=== PATIENT | female | born 1955 | race African-American/Black ===

== ENCOUNTER → 2017-12-12 10:09 | Outpatient (CLI) | payer OTHER ==
[2015-07-05 06:17] VITALS: BMI 36.9
[~2017-12-12 10:09] MED LIST: BAYER CHEWABLE81 MG PO; CADUET 10 MG/201 TAB; GARLIC1 CAP PO; HYDROCODONE-APA1 TAB PO; LOTREL 10/20 CA1 CAP PO; TOPROL XL25 MG; VITAMIN C1000 MG PO; VITAMIN D31000 UNIT PO
== END | disposition home or self-care (01) ==
LOC: D.CT 10:09
DX: R51 Headache (principal)

== ENCOUNTER → 2018-10-21 07:51 | Outpatient (CLI) | payer MEDICARE, OTHER ==
[2015-07-05 06:17] VITALS: BMI 36.9
[~2018-10-21 07:51] MED LIST changes: +ALDACTONE25 MG PO
== END | disposition home or self-care (01) ==
LOC: D.HCCARDIO 07:51
DX: R94.31 Abnormal electrocardiogram [ECG] [EKG] (principal)

== ENCOUNTER → 2018-10-29 06:01 | Outpatient (CLI) | payer MEDICARE, OTHER ==
[~2018-10-29] VITALS: Ht 160 cm; Wt 93.2 kg
--- NOTE | ~2018-10-29 | HEMODYNAMI ---
PATIENT:AMARI ROSE MEDICAL RECORD: [id number] : 51 LOCATION:[facility] ADMISSION DATE: 10/29/18 Generatedon:10/29/20188:05 Patient name: AMARI ROSE Patient #: [id number] SSN: DO B: 1955 Date of study: 10/29/2018 Page: Of Hemodynamic Procedure Report Patient Data Patient Demographics Procedure consent was obtained First Name: AMARI Gender: Female Last Name: MILTON : 1955 [facility] Initial: SPARKLE Age: 63 year(s) Patient #: [id number] Race: Black Additional ID: [id number] Contact details Address: [address] [place] [address] State: [place] City: [place] Zip code: [address] Past Medical History Allergies: No known allergies Admission Admission Data Admission Date: 10/29/2018 Admission Time: 6:01 Admit Source: Other Lab Results Lab Result Date: 10/29/2018 Lab Result Time: 0:00 Biochemistry Name Units Result Min Max BUN mg/dl 14 --(--*-)-- 7 18 Creatinine mg/dl 0.9 --(-*--)-- 0.6 1.3 CBC Name Units Result Min Max Hemoglobin g/dl 13.9 --(*---)-- 13.5 17.5 Procedure Procedure Types Cath Procedure Diagnostic Procedure LHC LHC w/Coronaries Sedation Charges Moderate Sedation up to 15 minutes Procedure Description Procedure Date Procedure Date: 10/29/2018 Procedure Start Time: 7:52 Procedure End Time: 8:04 Procedure Staff Name Function Diego Todd MD Performing Physician Mario Long RT Monitor Ashley High RT Scrub Denisa Mott RN Nurse Carl Birmingham RN Receiving Dock Checker Procedure Data Cath Procedure Fluoroscopy Diagnostic fluoroscopy Total fluoroscopy Time: 2.2 time: 2.2 min min Diagnostic fluoroscopy Total fluoroscopy dose: 541 dose: 541 mGy mGy Contrast Material Contrast Material Type Amount (ml) Isovue 300 40 Entry Location Entry Primary Successful Side Size Upsize Upsize Entry Closure Casas ccessful Closure Location (Fr) 1 (Fr) 2 (Fr) Remarks Device Remarks Radial Right 6 Fr Mechanical artery Short Compression Diagnostic catheters Device Type Used For End Catheter Placement DIAGNOSTIC 5FR Super Procedure Torque RBL-JK ([id number]) Procedure Complications No complications Procedure Medications Medication Administration Route Dosage 0.9% NaCl I.V. 100 ml/hr Oxygen etCO2 Nasal cannula 2 l/min Lidocaine 2% added to field 20 Heparin Flush Bag added to field 2 bags (1000units/500ml NS) Radial Cocktail added to field 1 syringe (Verapomil 2mg/Nitro 400mcg/Heparin 1500units) Versed I.V. 2 mg Fentanyl I.V. 50 mcg Versed I.V. 2 mg Fentanyl I.V. 50 mcg Hemodynamics Rest HGB: 13.9 (g/dl) Heart Rate: 67 (bpm) Pressure Samples Time Site Value (mmHg) Purpose Heart Use Rate(bpm) 7:56 LV 114/-8,3 Snapshot 89 Gradients Valve Time Site Site Mean SEP/DFP Peak To Heart Use 1 2 (mmHg) (sec/min) Peak Rate (mmHg) (bpm) Aortic 7:57 LV AO 77 Snapshots Pre Cath Intra NCS Post Cath Vital Signs Time Heart Resp SPO2 etCO2 NIBP (mmHg) Rhythm Pain Sedation Rate (ipm) (%) (mmHg) Status Level (bpm) 7:38:32 74 12 99 38.5 156/91(132) NSR 0 (11) 10(A) , No pain 7:42:58 66 12 98 40.8 140/73(101) NSR 0 (11) 10(A) , No pain 7:47:18 67 12 98 28.7 136/74(101) NSR 0 (11) 10(A) , No pain 7:51:30 70 11 98 40.8 121/73(102) NSR 0 (11) 10(A) , No pain 7:55:46 79 13 97 36.3 109/63(81) NSR 0 (11) 9(A) , No pain 8:00:00 75 10 98 37.7 114/69(94) NSR 0 (11) 10(A) , No pain 8:04:12 77 11 96 37 117/65(98) NSR 0 (11) 10(A) , No pain Medications Time Medication Route Dose Verified Delivered Reason Notes Ef fectiveness by by 7:39:31 0.9% NaCl I.V. 100 Diego Denisa used for ml/hr Perez Mott assistant therapy aide 7:39:47 Oxygen etCO2 2 l/min Diego Denisa used for Nasal Perez Mott procedure cannula RN 7:39:53 Lidocaine 2% added 20ml Diego Diego for local to vial Perez Todd MD anesthetic field 7:39:59 Heparin Flush added 2 bags Diego Diego used for Bag to Perez Todd MD procedure (1000units/500ml field NS) 7:40:09 Radial Cocktail added 1 Diego Diego used for (Verapomil to syringe Perez Todd MD procedure 2mg/Nitro field 400mcg/Heparin 1500units) 7:47:23 Versed I.V. 2 mg Diego Denisa for Perez Mott sedation RN 7:47:35 Fentanyl I.V. 50 mcg Diego Denisa for Perez Mott sedation RN 7:53:42 Versed I.V. 2 mg Diego Denisa for Perez Mott sedation RN 7:53:47 Fentanyl I.V. 50 mcg Diego Denisa for Perez Mott sedation mining manager Log Time Note 7:24:46 Informed consent obtained and on chart 7:24:49 Admit Source: Other 7:25:11 Diagnostic Cath status Elective 7:25:13 Carl Birmingham RN sent for patient. Start room use. 7:25:14 Time tracking: Regular hours (M-F 7:00 - 5:00) 7:25:17 Plan of Care:Hemodynamics will remain stable., Cardiac rhythm will remain stable., Comfort level will be maintained., Respiratory function will remain adequate., Patient/ family verbilizes understanding of procedure., Procedure tolerated without complication., Recovers from procedure without complications.. 7:28:11 H&P Date Dictated: 10/07/2018 Within 30 days and on chart., H&P Addendum completed by physician on day of procedure. (MUST COMPLETE FOR ALL OUTPATIENTS). 7:28:21 Patient allergic to No known allergies 7:28:40 Lab Result : BUN 14 mg/dl 7:28:40 Lab Result : Creatinine 0.9 mg/dl 7:28:40 Lab Result : Hemoglobin 13.9 g/dl 7:30:13 Patient received from Pre/Post Procedure Room to CCL 1 Alert and oriented. Tansferred to table in Supine position. 7:30:15 Warm blankets applied, and qasim hugger turned on for patient comfort. 7:30:15 Correct patient and procedure confirmed by team. 7:30:16 ECG and BP/O2 sat monitors applied to patient. 7:36:09 Vital chart was started 7:39:31 0.9% NaCl 100 ml/hr I.V. was administered by Denisa Mott RN; used for procedure; 7:39:47 Oxygen 2 l/min etCO2 Nasal cannula was administered by Denisa Mott RN; used for procedure; 7:39:53 Lidocaine 2% 20ml vial added to field was administered by Diego Todd MD; for local anesthetic; 7:39:59 Heparin Flush Bag (1000units/500ml NS) 2 bags added to field was administered by Diego Todd MD; used for procedure; 7:40:09 Radial Cocktail (Verapomil 2mg/Nitro 400mcg/Heparin 1500units) 1 syringe added to field was administered by Diego Todd MD; used for procedure; 7:44:11 Baseline sample Acquired. 7:44:17 Rhythm: sinus rhythm 7:44:20 Full Disclosure recording started 7:44:21 Pre-procedure instructions explained to patient. 7:44:22 Pre-op teaching completed and patient verbalized understanding. 7:44:23 Family in waiting room. 7:44:27 Patient NPO since Midnight. 7:44:36 Is the patient allergic to Iodine/contrast media? No. 7:44:37 Was the patient premedicated? No 7:44:39 Is patient on blood thinner?No 7:44:40 Patient diabetic? No. 7:44:42 Previous problem with sedation/anesthesia? No ? 7:44:44 Snore? Yes 7:44:45 Sleep apnea? No 7:44:47 Deviated septum? No 7:44:48 Opens mouth fully? Yes 7:44:48 Sticks out tongue? Yes 7:45:47 IV patent on arrival in left forearm with 0.9% NaCl at [facility]. 7:45:49 Lab results completed and on chart. 7:45:54 Right Radial & Right Groin area was prepped with chlora-prep and draped in sterile fashion 7:45:55 Alarms reviewed by RJoshua N. 7:45:55 Sharps counted by scrub and verified by R.N. 7:45:58 Physician arrived 7:45:59 --------ALL STOP TIME OUT------ 7:45:59 Final Timeout: patient, procedure, and site verified with staff and physician. All members of the team are in agreement. 7:46:01 Right Radial & Right Groin site verified by team. 7:46:04 Physical assessment completed. ASA score P 2 - A patient with mild systemic disease as per Diego Todd MD. 7:46:07 Sedation plan: IV Moderate Sedation Medication:Versed, Fentanyl 7:47:23 Versed 2 mg I.V. was administered by Denisa Mott RN; for sedation; 7:47:35 Fentanyl 50 mcg I.V. was administered by Denisa Mott RN; for sedation; 7:49:46 Use device set Radial Dx or PCI 7:49:47 ACIST Syringe (97108) opened to sterile field. 7:49:48 Medline Cath Pack ([id number]) opened to sterile field. 7:49:49 ACIST Hand Control (78874) opened to sterile field. 7:49:49 ACIST Manifold (91603) opened to sterile field. 7:49:49 Tegaderm 4 x 4 (1626W) opened to sterile field. 7:49:50 MBrace Wrist Support ([id number]) opened to sterile field. 7:49:52 Bag Decanter () opened to sterile field. 7:49:53 DIAGNOSTIC WIRE .035 260cm J wire (828887) opened to sterile field. 7:50:04 NEEDLE Cook 21G 4cm Radial (J15984) opened to sterile field. 7:50:46 SHEATH 6FR RAIN (0337116) NO COST SUPPLY opened to sterile field. 7:52:51 Procedure started. 7:52:55 Local anesthetic to right radial artery with Lidocaine 2% by Diego Todd MD.INITIAL ACCESS ONLY 7:53:11 A 6 Fr Short sheath was inserted into the Right Radial artery 7:53:31 Zero performed for pressure channel P1 7:53:42 Versed 2 mg I.V. was administered by Denisa Mott RN; for sedation; 7:53:47 Fentanyl 50 mcg I.V. was administered by Denisa Mott RN; for sedation; 7:55:35 A DIAGNOSTIC 5FR Super Torque RBL-JK ([id number]) was advanced over the wire and used for Procedure. 7:56:41 LV gram done using SÁNCHEZ 7:56:43 Injector settings: Ml/sec: 5, Volume: 15, 7:56:44 LV hemodynamics recorded. 7:56:55 EF : 60 % 7:57:51 LCA angiography performed. 7:59:57 RCA angiography performed. 8:00:13 Catheter removed. 8:00:30 TR BAND Standard ([id number]) opened to sterile field. 8:00:41 Sheath removed intact; hemostasis achieved with Mechanical Compression to the Right Radial artery. 8:00:43 Procedure ended.(Physican Out) 8:01:14 Fluoroscopy time 02.20 minutes. 8:01:17 Flurop Dose total: 541 8:01:17 Fluoroscopy dose: 541 mGy 8:01:20 Contrast amount:Isovue 300 40ml. 8:01:22 Sharps counted by scrub and verified by R.N. 8:01:25 TR band inflated with 12cc of air. 8:01:26 Insertion/operative site no bleeding no hematoma. 8:01:35 Post right radial artery:stable, soft, clean and dry 8:02:13 Post Procedure Pulses reassessed and unchanged 8:02:14 Post-procedure physical assessment completed. ASA score P 2 - A patient with mild systemic disease as per Diego Todd MD. 8:02:16 Post procedure rhythm: unchanged. 8:02:17 Post procedure instruction explained to patient.Patient verbalizes understanding. 8:02:18 Patient needs reinforcement of post procedure teaching. 8:02:34 Procedure type changed to Cath procedure, Diagnostic procedure, LHC, LHC w/Coronaries, Sedation Charges, Moderate Sedation up to 15 minutes 8:03:26 Procedure and supply charges have been captured, reviewed, submitted and are correct. 8:03:28 Procedure Complication : No complications 8:03:54 Vital chart was stopped 8:03:59 See physician's report for complete and final results. 8:04:05 Report given to Pre/Post Procedure Room. 8:04:08 Patient transfered to Pre/Post Procedure Room with Stretcher. 8:04:10 Procedure ended. 8:04:10 Full Disclosure recording stopped 8:04:13 End room use (Document Last) Device Usage Item Name Manufacture Quantity Catalog Hospital Part Current Minimal Lot# / Number Charge Number Stock Stock Serial# Code ACIST Acist 1 04908 [id number] 512776 027605 20 Syringe Medical (83715) Systems Inc Medline Medline 1 [id number] 47223 773095 5 Cath Pack ([id number]) ACIST Hand Acist 1 38200 011576 881632 950008 5 Control Medical (62464) Systems Inc ACIST Acist 1 25917 517102 172031 290359 5 Manifold Medical (99767) Systems Inc Tegaderm 4 3M 1 1626W 431217 474219 985244 5 x 4 (1626W) MBrace Advanced 1 140-0250-00 359615 95757 020263 5 Wrist Vascular Support Dynamics ([id number]) Bag Microtek 1 2001S 268624 11801 911677 5 Decanter Medical Inc. () DIAGNOSTIC St Jarek 1 428575 961041 072990 964246 30 WIRE .035 260cm J wire (013273) SHEATH 6FR Cardinal 1 8234464 550959 890681 5 [facility] (0837486) NO COST SUPPLY DIAGNOSTIC Cardinal 1 [id number] 404899 019127 5 5FR BView Health Torque RBL-JK ([id number]) TR BAND Terumo 1 [id number] 387196 017473 908107 40 Standard ([id number]) NEEDLE [facility] Medical 1 [id number] 158867 860839 684139 5 21G 4cm Radial (J41938) Signature Audit [place] Stage Time Signature Unsigned Intra-Procedure 10/29/2018 Mario Long 8:05:49 AM RT(R) Signatures Monitor : Mario Long RT Signature : Date : Time : [facility] [address] [place] [address]
[2018-10-29 06:40] VITALS: BP 122/96; Ht 160 cm; Wt 93.2 kg
[2018-10-29 06:43] LABS: BASOPHILS 0 % (0-2); EOSINOPHILS 2.2 % (0-7); HEMATOCRIT 42.1 % (36.0-48.0); HEMOGLOBIN 13.9 g/dL (12-16); IMMATURE GRANULOCYTES 0.2 % (0-5); LYMPHOCYTES 48.4 % (15-50); MCV 87.7 fL (80.0-100.0); MEAN PLATELET VOLUME 10.9 fL (7.4-10.4); MONOCYTES 4.8 % (2-11); NEUTROPHILS 44.4 % (40-80); PLATELET COUNT 146 10x3/uL (130-400); RDW 13.1 % (11.5-14.5); WBC 5.5 10x3/uL (4.8-10.8)
[2018-10-29 06:59] LABS: ANION GAP 11.5 mmol/L (8-16); CARBON DIOXIDE 28.8 mmol/L (21.0-32.0); CREATININE - SERUM 0.9 mg/dL (0.6-1.3); POTASSIUM - SERUM 4.3 mmol/L (3.5-5.1)
--- NOTE | 2018-10-29 08:17 | NUR ---
RECIEVED TO ROOM VIA STRETCHER FROM KLYSTROM TUBE TESTER WITH TR BAND TO R/WRIST CDI NO BLEEDING OR HEMATOMA NOTED. PATIENT CONNECTED TO MONITOR FOR OBSERVATION WITH HR 71 BP 120/61
--- NOTE | 2018-10-29 08:23 | NUR ---
PATIENT RESTING QUIETLY WITH O2 AT 2 LITERS RESPIRATIONS ARE EVEN AND UNLABORED. HR 62 BP 120/61. TR BAND TO R/WRIST IS CDI NO BLEEDING OR HEMATOMA NOTED.
--- NOTE | 2018-10-29 08:39 | NUR ---
TR BAND REMAINS CDI WITH NO BLEEDING OR HEMATOMA NOTED. PATIENT DENIED CHEST PAIN CALL LIGHT IS IN REACH AND FAMILY AT BEDSIDE
--- NOTE | 2018-10-29 09:00 | NUR ---
TR BAND REMAINS CDI WITH NO BLEEDING NOTED. VSS AND CHEST PAIN IS DENIED
--- NOTE | 2018-10-29 09:30 | NUR ---
REPOSITIONED TO SITTING WITH HOB UP 30 SANDWICH AND SODA TO BEDSIDE. NAUSEA DENIED. TR BAND REMAINS CDI
--- NOTE | 2018-10-29 09:56 | NUR ---
4 CC AIR REMOVED FROM TR BAND WITH NO BLEEDING OR HEMATOMA NOTED.
--- NOTE | 2018-10-29 10:05 | NUR ---
4 CC AIR REMOVED FROM TR BAND NO BLEEDING NOTED
--- NOTE | 2018-10-29 10:17 | NUR ---
4 CC AIR REMOVED FROM TR BAND WITH NO BLEEDING OR HEMATOMA NOTED. VERBAL AND WRITTEN DISCHARGE GONE OVER WITH PATIENT AND
--- NOTE | 2018-10-29 10:24 | NUR ---
PIV REMOVED WITH DRESSING APPLIED. PATIENT UP TO GET DRESSED FOR DISCHARGE HOME CHEST PAIN DENIED
--- NOTE | 2018-10-29 10:38 | NUR ---
TR BAND REMOVED WITH DRESSING APPLIED. PATIENT DENIED PAIN OR NEEDS LEFT VIA WC TO PARKING FOR RIDE HOME. NO DISTESS NOTED
== END | disposition home or self-care (01) ==
LOC: D.CATH 06:01
PROVIDERS: Internal Medicine Cardiovascular Disease
DX: I20.9 Angina pectoris, unspecified (principal); I10 Essential (primary) hypertension; Z82.49 Family history of ischemic heart disease and other diseases of the circulatory system; Z87.891 Personal history of nicotine dependence; Z01.812 Encounter for preprocedural laboratory examination

== ENCOUNTER 2019-07-03 01:26 | Emergency (ER) | payer MEDICARE, OTHER ==
[~2019-07-03] VITALS: Ht 160 cm; Wt 88.2 kg
[2019-07-03 01:33] VITALS: Ht 160 cm; Wt 88.2 kg
[2019-07-03 03:14] VITALS: BP 137/63
== END 2019-07-03 03:22 | disposition other institution (70) ==
LOC: D.ER 01:26
DX: R51 Headache (principal); I61.9 Nontraumatic intracerebral hemorrhage, unspecified